=== PATIENT | female | born 1970 | race Two or more races ===

== ENCOUNTER → 2016-10-29 | Emergency (ER) | payer MEDICAID ==
[~2016-10-29] VITALS: Ht 167.6 cm; Wt 71.2 kg
[~2016-10-29] MED LIST: ACETAMINOPHEN-1 EAC2 ORAL; CORTISPORIN EAR10 ML LEFT EAR; Ketorolac 60mg Inj IM ONE; NAPROXEN500 M2 ORAL; NKM
[2016-10-29 12:25] VITALS: BP 126/84
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
--- NOTE | 2016-10-30 11:48 | Diagnostic Imaging Report ---
Indication: Pain Findings: 3 views of the left wrist were obtained. There is a fracture at the base of the fourth metacarpal. There is increased distance of the scapholunate which indicates scapholunate ligament disruption. The acuity of this is none known. Impression: Acute fracture at the base of the fourth metacarpal. Scapholunate dissociation, acuity indeterminate
--- NOTE | 2016-10-31 08:52 | Diagnostic Imaging Report ---
Indication: pain Findings: 3 views of the left hand were obtained. Acute fracture of the base of the fourth metacarpal demonstrated extending to the midshaft. The fracture is oblique. Soft tissue swelling is also present. Impression: Acute fourth metacarpal fracture
== END | disposition home or self-care (01) ==
LOC: EMR 12:32
DX: S62.325A Displaced fracture of shaft of fourth metacarpal bone, left hand, initial encounter for closed fracture (principal); X58.XXXA Exposure to other specified factors, initial encounter; Y93.9 Activity, unspecified; Y92.9 Unspecified place or not applicable
CPT/HCPCS: 29125; 96372; 99284